=== PATIENT | female | born 1965 | race Caucasian/White ===

== ENCOUNTER 2023-01-17 19:41 | Emergency (ER) | payer BC, MEDICAID ==
[~2023-01-17] VITALS: Ht 167.6 cm; Wt 77.3 kg
[~2023-01-17 19:41] MED LIST: CHLORDIAZEPOXIDE PO
[2023-01-17 19:50] VITALS: BP 143/73
[2023-01-17] MEDS ORDERED: amoxicillin 250mg capsule PO ONE (20:50)
[2023-01-17] MEDS ORDERED: ondansetron 4mg rapidly disintigrating tab PO ONE (20:50)
[2023-01-17] MEDS ORDERED: ACET-1025 PO (20:50)
[2023-01-17] MEDS ORDERED: ketorolac trometh inj. 60 MG/2 ML VIAL IM ONE (20:50)
[2023-01-17] MEDS ORDERED: AMOX500C2 PO (20:50)
[2023-01-17] MEDS ORDERED: acetaminophen 325mg tablet PO ONE (20:50)
== END 2023-01-17 21:16 | disposition home or self-care (01) ==
LOC: ER 19:41
DX: K08.89 Other specified disorders of teeth and supporting structures (principal); I10 Essential (primary) hypertension; F10.10 Alcohol abuse, uncomplicated; Z98.890 Other specified postprocedural states; Z79.899 Other long term (current) drug therapy
CPT/HCPCS: 96372; 99284; J1885